=== PATIENT | female | born 1950 | race Caucasian/White ===

== ENCOUNTER 2018-07-23 10:45 | Inpatient (IN) | payer OTHER ==
[~2018-07-23] VITALS: Ht 144.8 cm; Wt 52.6 kg
[2018-07-23] MEDS ORDERED: ZOCOR40 MG PO (12:29)
[2018-07-23] MEDS ORDERED: SYNTHROID50 MCG PO (12:29)
[2018-07-23] MEDS ORDERED: FOLGARD TABLET1 EACH PO (12:30)
[2018-07-23] MEDS ORDERED: ZANTAC300 MG PO (12:30)
[2018-07-23] MEDS ORDERED: GLIPIZIDE ER10 MG PO (12:30)
[2018-07-23] MEDS ORDERED: LISINOPRIL20 MG PO (12:30)
[2018-07-23] MEDS ORDERED: JANUMET 50-1,01 EACH PO (12:31)
[2018-07-23] MEDS ORDERED: CILOSTAZOL100 MG PO (12:31)
[2018-07-25] MEDS ORDERED: ULTRACET PO (08:41)
== END 2018-07-25 11:26 | disposition home or self-care (01) | DRG 743 ==
LOC: EDSTATUS 10:45 → ADM 10:45 → O/R 07-24 06:38 → OB/GYN 07-24 06:38 → SURH 07-25 10:45 → OB/GYN 07-25 11:26
PROVIDERS: ADMIT Obstetrics & Gynecology
PROC: 0UT94ZZ Resection of Uterus, Percutaneous Endoscopic Approach (ICD-10-PCS; 2018-07-24)
PROC: 0UT24ZZ Resection of Bilateral Ovaries, Percutaneous Endoscopic Approach (ICD-10-PCS; 2018-07-24)
PROC: 0UT74ZZ Resection of Bilateral Fallopian Tubes, Percutaneous Endoscopic Approach (ICD-10-PCS; 2018-07-24)
PROC: 0DBU4ZZ Excision of Omentum, Percutaneous Endoscopic Approach (ICD-10-PCS; 2018-07-24)
PROC: 3E1M38Z Irrigation of Peritoneal Cavity using Irrigating Substance, Percutaneous Approach (ICD-10-PCS; 2018-07-24)
PROC: 0USG4ZZ Reposition Vagina, Percutaneous Endoscopic Approach (ICD-10-PCS; 2018-07-24)
PROC: 0UB14ZZ Excision of Left Ovary, Percutaneous Endoscopic Approach (ICD-10-PCS; principal; 2018-07-24 07:00)
DX: D25.1 Intramural leiomyoma of uterus (principal); D25.2 Subserosal leiomyoma of uterus; N72 Inflammatory disease of cervix uteri; D27.1 Benign neoplasm of left ovary